=== PATIENT | male | born 1965 | race Caucasian/White ===

== ENCOUNTER 2019-09-26 09:50 | Day surgery (SDC) | payer BC ==
[~2019-09-26 09:50] MED LIST: CEFAZOLIN SODIUM 2 GM in DEXTROSE 5%-WATER 100 ML IV PRN
[2019-09-26] MEDS ORDERED: DEXAMETHASONE SOD PHOSPHATE INJ 4 MG/1 ML VIAL ONE (10:45)
[2019-09-26] MEDS ORDERED: ONDANSETRON HCL INJ/PF 4 MG/2 ML SDV ONE (10:45)
[2019-09-26] MEDS ORDERED: LIDOCAINE 2% INJ-PF (20 MG/ML) 2 ML AMPUL ONE (10:45)
[2019-09-26] MEDS ORDERED: KETOROLAC TROMETHAMINE 60 MG/2 ML SDV ONE (10:45)
[2019-09-26] MEDS ORDERED: BUPIVACAINE HCL 0.5 % INJ/PF 30 ML SDV ONE (10:50)
[2019-09-26] MEDS ORDERED: MIDAZOLAM 2 MG/2 ML INJ ONE (10:52)
[2019-09-26] MEDS ORDERED: HYDROMORPHONE HCL INJ/PF 2 MG/ML AMPULE ONE (10:52)
[2019-09-26] MEDS ORDERED: PROPOFOL INJ 200 MG/20 ML VIAL IV ONE (10:53)
[2019-09-26] MEDS ORDERED: ONDANSETRON HCL INJ/PF 4 MG/2 ML SDV IV PRN ×2 (11:29→13:03)
[2019-09-26] MEDS ORDERED: DIPHENHYDRAMINE HCL 50 MG/ML VIAL IV PRN (11:29)
[2019-09-26] MEDS ORDERED: PROMETHAZINE HCL INJ 25 MG/1 ML VIAL IV PRN ×2 (11:29)
[2019-09-26] MEDS ORDERED: MEPERIDINE HCL/PF INJ 25 MG/1 ML DISP.SYRIN IV PRN (11:29)
[2019-09-26] MEDS ORDERED: FENTANYL CITRATE INJ/PF 100 MCG/2 ML AMPUL IV PRN ×3 (11:29)
[2019-09-26] MEDS ORDERED: OXYCODONE-ACETAMINOPHEN 5-325 MG TABLET PO PRN ×3 (11:29→13:03)
[2019-09-26] MEDS ORDERED: MORPHINE SULFATE 10 MG/ML INJ IV PRN (13:03)
--- NOTE | 2019-09-26 13:03 | Operative Report ---
Operative Report DATE OF SURGERY: 09/26/19 PREOPERATIVE DIAGNOSIS: 1. Right cubital tunnel syndrome. 2. Tophaceous gout right olecranon bursa. 3. Right wrist ulnar neuropathy POSTOPERATIVE DIAGNOSIS: Same OPERATION: 1. Right in situ cubital tunnel release. 2. Right elbow olecranon bursectomy with excision tophaceous gout, excision olecranon osteophyte. 3. Right carpal tunnel release with Guyon's canal release SURGEON: JEFE SIU ANESTHESIA: GA COMPLICATIONS: None ESTIMATED BLOOD LOSS: Minimal PROCEDURE: Indication for above procedure: 54-year-old male with history of tophaceous gout and ulnar neuropathy of the right upper extremity. Attempted conservative without resolution of patient's symptoms at that point decision was made to operative intervention. Risk and benefits of the operative procedure were explained patient verbalized understanding consented for surgical procedure. Procedure In Detail: Patient was seen and evaluated in the preoperative holding area. The upper extremity was initialized and marked. Patient received 2g of Ancef IV for bacterial prophylaxis. Patient was taken back to the operative room where transferred to the operative table and placed under general anesthesia. Once they were adequately anesthetized a nonsterile tourniquet was placed on the upper extremity. A surgical team debriefing was performed ensuring all instrumentation was available, the surgical procedure was discussed with possible concerns reviewed. The upper extremity was prepped with ChloraPrep and draped in a sterile fashion. A timeout was done identifying correct patient, procedure and extremity everyone in attendance agree with this and verbalized no concerns. The extremity was exsanguinated the tourniquet was inflated to 250 mmHg. Longitudinal skin incision was made just posterior to the medial epicondyle. Blunt dissection was performed medial antebrachial cutaneous nerve branches were identified. Ulnar nerve was identified deep to Horton's ligament. Horton's ligament was then released ulnar nerve was neurolysed in a proximal direction releasing bands to the medial intermuscular septum and triceps. There is no residual compression noted proximally. Blunt dissection was then performed distally. FCU fascia was released. Deep fibrous bands within the FCU were also released. At completion finger dissection was performed proximally and distally to ensure adequate release with no residual compression. Any small peripheral veins were coagulated with bipolar cautery. Patient was placed through range of motion there is no evidence of ulnar nerve subluxation. Wound was copiously irrigated with normal saline. Subcutaneous tissues were closed with interrupted 4-0 Monocryl suture. Skin was closed with horizontal mattress 3-0 nylon suture. Longitudinal skin incision was made along the olecranon. Blunt dissection was performed. Tophaceous gout was identified within the olecranon bursa. Bursa was sharply dissected isolating the bursa and gouty tophi and excised in its entirety. A small spur along the olecranon was debrided including a portion of tophaceous gout within the section. The edges were contoured with a small rasp. Wound was copiously irrigated with normal saline. Any peripheral veins were coagulated bipolar cautery. Deep soft tissue was closed with 3-0 Vicryl suture. Subcutaneous tissue closed with 4-0 Monocryl suture. Skin was closed with interrupted horizontal mattress 3-0 nylon suture. 20 cc of 0.5% bupivacaine were injected into the elbow incisions. Tophaceous gout was sent to pathology in formalin for further identification to confirm diagnosis. Attention then turned to the carpal tunnel and Guyon's canal. Longitudinal skin incision was made along the radial border of the ring finger extending proximal to the wrist crease with Anne-Marie extension. Blunt dissection was performed Proximally within the wrist the median nerve and continence of the carpal canal identified. Palmar fascia was sharply excised to expose the transverse carpal ligament which was then released distally to the point of the adipose protecting the superficial palmar arch. There was no residual compression proximally or distally within the median nerve. The ulnar nerve and neurovascular bundle were identified proximally deep to the FCU muscle and then extending distally between the hamate hook and pisiform. Neuro lysis was performed to the ulnar nerve to ensure adequate release with no residual compression. Once this was confirmed and a small peripheral veins were coagulated with bipolar cautery. Wound was copiously irrigated with normal saline. Skin was closed with horizontal mattress 4-0 and 3-0 nylon suture. 10 cc of 0.5% bupivacaine without epinephrine was injected for postoperative pain control. Wounds were dressed with Xeroform fours and a soft dressing placed. Tourniquet was deflated. Patient had normal peripheral perfusion. Sponge counts, instrument counts, needle counts were correct. Patient was then awoken from anesthesia. Transferred from the operating room table to the operating room stretcher. There was no intraoperative complications patient tolerated procedure well stable to PACU. Postoperative plan: Patient follow in the office in 2 weeks at which point we will proceed with wound check. Patient may begin range of motion exercises.
[2019-09-26] MEDS ORDERED: ACETAMINOPHEN 1,000 MG/100 ML RTUPB IV ONE (13:30)
[2019-09-26] MEDS ORDERED: OXYCODONE-ACETAMINOPHEN 5-325 MG TABLET ONE (14:45)
[2019-09-26 16:30] VITALS: BP 107/70
--- NOTE | 2019-10-01 21:57 | Discharge Summary ---
Discharge Summary (SDC) - Discharge Final Diagnosis: Right upper extremity ulnar neuropathy Right elbow tophaceous gout Date of Surgery: 09/26/19 Discharge Date: 09/26/19 Condition: Good Treatment or Instructions: Schedule Follow Up w/ Dr. Yobani Don @ [facility] to be seen in 10-14 days or as scheduled [place]: [place]: [place]: May remove dressing on postop day #3, keep incision covered and dry. Ice and elevate May begin finger range of motion attempting to make full fist. Stool softener of choice when on pain medication. USE OF [id number] IBUPROFEN: Ibuprofen (Advil, Nuprin, Medipren, Motrin IB) is a medication for fever and pain control. In addition, it has anti- inflammatory effects which may be beneficial, especially in the treatment of injuries. It's best to take ibuprofen with food. Persons with ulcer disease or allergy to aspirin should notify their physician of this before taking ibuprofen. Ibuprofen can be given every four to six hours, for a total of four doses daily. Age Pain or fever dose Antiinflammatory dose 6-8 yr 200 mg (1 tab) 200 mg (1 tab) 9-11 yr 200 mg (1 tab) 200-400 mg (1-2 tab) 11-14 yr 200-400 mg (1-2 tab) 400 mg (2 tab) 15-adult 400 mg (2 tab) 600 mg (3 tab) ORAL NARCOTIC MEDICATION: You have been given a prescription for pain control. This medication is a narcotic. It's best taken with food, as nausea can result if taken on an empty stomach. Don't operate machinery or drive within six hours of taking this medication. Do not combine this medicine with alcohol, or with any medication which can cause sedation (such as cold tablets or sleeping pills) unless you get permission from the physician. Narcotics tend to cause constipation. If possible, drink plenty of fluids and eat a diet high in fiber and fruits. Please be aware that prescription narcotics also have the potential for abuse. People become addicted to these medications because of the general sense of wellbeing that they induce. This feeling along with a significant reduction in tension, anxiety, and aggression provides a stimulating seductive quality to these drugs. Once your pain is under control, we encourage you to discard your unused narcotics. Prescriptions: Oxycodone HCl/Acetaminophen [Percocet 5-325 mg Tablet] 1 tab PO Q6 PRN #25 tab PRN Reason: Referrals: SOHAIL DOE PA [Primary Care Provider] - Discharge Diet: As Tolerated Respiratory Treatments at Home: Deep Breathing/Coughing Discharge Activity: No Lifting Over 10 Pounds, No Lifting/Push/Pulling Report the Following to Your Physician Immediately: Fever over 101 Degrees, Unusual Bleeding, Redness, Swelling, Warmth, Increased Soreness
== END 2019-09-26 15:58 | disposition home or self-care (01) ==
LOC: OROUT 09:50
PROVIDERS: ATTEND Orthopaedic Surgery
DX: M1A.0211 Idiopathic chronic gout, right elbow, with tophus (tophi) (principal); G56.21 Lesion of ulnar nerve, right upper limb; R20.2 Paresthesia of skin; M25.531 Pain in right wrist; M25.521 Pain in right elbow; I10 Essential (primary) hypertension; E78.5 Hyperlipidemia, unspecified; F17.210 Nicotine dependence, cigarettes, uncomplicated; Z79.899 Other long term (current) drug therapy; Z79.82 Long term (current) use of aspirin; Z79.84 Long term (current) use of oral hypoglycemic drugs
CPT/HCPCS: 64718; 24105; 64721; 82962; 88305 ×2; 01810; J2250; J3490 ×2; J0690; J1100; J1885; J1170; J2405; J7060; J2704; J0131; 1810